=== PATIENT | male | born 1975 | race Caucasian/White ===

== ENCOUNTER 2022-07-29 16:13 | Emergency (ER) | payer MEDICARE, MEDICAID ==
[~2022-07-29] VITALS: Ht 175.3 cm; Wt 94.4 kg
[2022-07-29] MEDS ORDERED: CLEOCIN HCL300 MG PO (16:36)
[2022-07-29] MEDS ORDERED: IBU600 MG PO (16:36)
[2022-07-29] MEDS ORDERED: NORVASC5 MG PO (16:37)
[2022-07-29] MEDS ORDERED: BUPROPION HCL150 M2 PO (16:38)
[2022-07-29] MEDS ORDERED: OMEPRAZOLE20 MG PO (16:38)
[2022-07-29] MEDS ORDERED: TIVICAY10 MG PO (16:39)
[2022-07-29] MEDS ORDERED: PREZCOBIX 8001 EACH PO (16:39)
--- OUTSIDE RECORDS SUMMARY | 2022-07-29 17:13 | XMS ---
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 PHONE: [phone] SHARLENE DUMONT [facility]: Federally Qualified 04/14/2018-[facility] ([facility]) PHONE: [phone] Jimbo has no Care Guidelines for this patient. E.D. VISIT COUNT (12 MO.) 1 Wero Huddleston 1 [facility] Yadira ChambersDaysi Mckinney TOTAL 4 NOTE: Visits indicate total known visits. ED/UCC VISIT TRACKING (12 MO.) 07/29/2022 16:15 [facility]S [place] TYPE: Emergency COMPLAINT: - POSS FACIAL INFECTION 07/17/2022 13:29 Wero [place] TYPE: Emergency COMPLAINT: - Social Work DIAGNOSES: - Social Work 06/14/2022 04:17 Leonel Hannakush TrishDaysi GARCIAE [place] TYPE: Emergency DIAGNOSES: - Hand Injury - Wrist Injury 06/08/2022 12:38 Wero Donaldson [place] TYPE: Emergency DIAGNOSES: - Hypokalemia - Unspecified fracture of the lower end of left radius, subsequent encounter for closed fracture with routine healing - Fall INPATIENT VISIT TRACKING (12 MO.) No inpatient visits to display in this time frame [id number]
[2022-07-29 18:07] VITALS: BP 158/97
== END 2022-07-29 18:08 | disposition home or self-care (01) ==
LOC: ED 16:13
DX: K04.7 Periapical abscess without sinus (principal); Z88.0 Allergy status to penicillin; Z88.2 Allergy status to sulfonamides; Z79.899 Other long term (current) drug therapy
CPT/HCPCS: 36415; 80053; 85025; 96374; 96375; 99283-25; J1885

== ENCOUNTER 2022-10-18 04:43 | Emergency (ER) | payer MEDICARE, MEDICAID ==
[~2022-10-18] VITALS: Ht 175.3 cm; Wt 94.3 kg
--- OUTSIDE RECORDS SUMMARY | ~2022-10-18 | XMS | Continuity of Care Document ---
Demographics + + + | Address | [address] | | | [place] [address] | + + + | Preferred Language | Unknown | + + + | Marital Status | | + + + | Quaker Affiliation | Unknown | + + + | Race | White | + + + | Ethnic Group | Not or | + + + Author + + + | Author | [facility] | + + + | Organization | [facility] | + + + | Address | [address] | | | [place] [address] | + + + | Phone | | + + + Care Team Providers + + + + | Care Purchasing Clerk Name | Role | Phone | + + + + Unavailable | Unavailable | + + + + Unavailable | Unavailable | + + + + Allergies and Intolerances + + + + + + | date | description | facility | reaction | severity | + + + + + + | (no date) | Rash | [facility] | (no reaction) | (no severity) | | [facility] | | | + + + + + + | (no date) | Tongue | [facility] | (no reaction) | (no severity) | | | swelling | [facility] | | | + + + + + + | (no date) | Penicillin | [facility] | (no reaction) | (no severity) | | [facility] | | | + + + + + + | (no date) | Penicillin | [facility] | (no reaction) | (no severity) | | [facility] | | | + + + + + + | (no date) | Penicillin | [facility] | (no reaction) | (no severity) | | [facility] | | | + + + + + + | (no date) | Penicillin | [facility] | (no reaction) | (no severity) | | [facility] | | | + + + + + + Encounters No information. Functional Status No information. Immunizations No information. Medications + + + + | date | description | facility | + + + + | 2022-07-29 00:00 | DARUNAVIR/COBICISTAT | [facility] | + + + + | 2022-07-29 00:00 | Dolutegravir Sodium | [facility] | + + + + | 2022-07-29 00:00 | OMEPRAZOLE | [facility] | + + + + | 2022-07-29 00:00 | Ibuprofen | [facility] | + + + + | 2022-07-29 00:00 | AMLODIPINE BESYLATE | [facility] | + + + + | 2022-07-29 00:00 | CLINDAMYCIN HCL | [facility] | + + + + | 2022-07-29 00:00 | BUPROPION HCL | [facility] | + + + + Problems + + + + | date | description | facility | + + + + | 2022-07-29 00:00 | Dental abscess | [facility] | + + + + | 2022-07-29 16:15 | PERIAPICAL ABSCESS WITHOUT | [facility] | | | SINUS | | + + + + | 2022-07-29 16:15 | 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 Results/Labs +--------+--------+ +---------+--------+---------+ | test | date | facility | value | unit | notes | +--------+--------+ +---------+--------+---------+ + + | Result panel 1 | + + + + + +--------+ + + | | 2022-07-29 | [facility] | 16.1 | (missing) | (missing) | | (unavailable | [facility]47:07 [facility] | | | | + + + +--------+ + + + + | Result panel 2 | + + + + + +------+ + + | | 2022-07-29 | [facility] | 71 | (missing) | (missing) | | (unavailable | [facility]47:07 [facility] | | | | + + + +------+ + + + + | Result panel 3 | + + + + + +------+ + + | | 2022-07-29 | [facility] | 21 | (missing) | (missing) | | (unavailable | [facility]47:07 [facility] | | | | + + + +------+ + + + + | Result panel 4 | + + + + + +-----+ + + | | 2022-07-29 | [facility] | 5 | (missing) | (missing) | | (unavailable | [facility]47[facility]07 [facility] | | | | + + + +-----+ + + + + | Result panel 5 | + + + + + +-----+ + + | | 2022-07-29 | [facility] | 0 | (missing) | (missing) | | (unavailable | [facility]47[facility] | | | | + + + +-----+ + + + + | Result panel 6 | + + + + + +-----+ + + | | 2022-07-29 | [facility] | 1 | (missing) | (missing) | | (unavailable | [facility]47[facility]07 [facility] | | | | + + + +-----+ + + + + | Result panel 7 | + + + + + +-----+ + + | | 2022-07-29 | [facility] | 2 | (missing) | (missing) | | (unavailable | [facility]47[facility]07 [facility] | | | | + + + +-----+ + + + + | Result panel 8 | + + + + + +-------+---------+ + | | 2022-07-29 | [facility] | 122 | mg/dL | (missing) | | (unavailable | [facility]47:07 [facility] | | | | + + + +-------+---------+ + + + | Result panel 9 | + + + + + +------+---------+ + | | 2022-07-29 | [facility] | 21 | mg/dL | (missing) | | (unavailable | [facility]47:07 [facility] | | | | + + + +------+---------+ + + + | Result panel 10 | + + + + + +--------+---------+ + | | 2022-07-29 | [facility] | 3.19 | mg/dL | (missing) | | (unavailable | [facility]47[facility]07 [facility] | | | | + + + +--------+---------+ + + + | Result panel 11 | + + + + + +------+ + + | | 2022-07-29 | [facility] | 23 | (missing) | (missing) | | (unavailable | [facility]47[facility]07 [facility] | | | | + + + +------+ + + + + | Result panel 12 | + + + + + +--------+ + + | | 2022-07-29 | [facility] | 5.26 | (missing) | (missing) | | (unavailable | [facility]47[facility] | | | | + + + +--------+ + + + + | Result panel 13 | + + + + + +--------+ + + | | 2022-07-29 | [facility] | 6.58 | (missing) | (missing) | | (unavailable | [facility]47[facility]07 [facility] | | | | + + + +--------+ + + + + | Result panel 14 | + + + + + +-------+ + + | | 2022-07-29 | [facility] | 132 | (missing) | (missing) | | (unavailable | [facility]47[facility]07 [facility] | | | | + + + +-------+ + + + + | Result panel 15 | + + + + + +-------+ + + | | 2022-07-29 | [facility] | 3.3 | (missing) | (missing) | | (unavailable | [facility]47[facility] | | | | + + + +-------+ + + + + | Result panel 16 | + + + + + +------+ + + | | 2022-07-29 | [facility] | 96 | (missing) | (missing) | | (unavailable | [facility]47:07 [facility] | | | + + + +------+ + + + + | Result panel 17 | + + + + + +------+ + + | | 2022-07-29 | [facility] | 21 | (missing) | (missing) | | (unavailable | [facility]47[facility]07 [facility] | | | | + + + +------+ + + + + | Result panel 18 | + + + + + +--------+ + + | | 2022-07-29 | [facility] | 18.3 | (missing) | (missing) | | (unavailable | [facility]47[facility]07 [facility] | | | | + + + +--------+ + + + + | Result panel 19 | + + + + + +-------+---------+ + | | 2022-07-29 | [facility] | 8.6 | mg/dL | (missing) | | (unavailable | [facility]47[facility]07 [facility] | | | | + + + +-------+---------+ + + + | Result panel 20 | + + + + + +-------+ + + | | 2022-07-29 | [facility] | 9.1 | (missing) | (missing) | | (unavailable | [facility]47[facility]07 [facility] | | | | + + + +-------+ + + + + | Result panel 21 | + + + + + +-------+ + + | | 2022-07-29 | [facility] | 3.8 | (missing) | (missing) | | (unavailable | [facility]47[facility]07 [facility] | | | | + + + +-------+ + + + + | Result panel 22 | + + + + + +-------+ + + | | 2022-07-29 | [facility] | 5.3 | (missing) | (missing) | | (unavailable | [facility] | | | | + + + +-------+ + + + + | Result panel 23 | + + + + + +--------+ + + | | 2022-07-29 | [facility] | 14.7 | (missing) | (missing) | | (unavailable | [facility]47[facility] | | | | + + + +--------+ + + + + | Result panel 24 | + + + + + +--------+ + + | | 2022-07-29 | [facility] | 0.72 | (missing) | (missing) | | (unavailable | [facility]47[facility]07 [facility] | | | | + + + +--------+ + + + + | Result panel 25 | + + + + + +-------+ + + | | 2022-07-29 | [facility] | 0.4 | (missing) | (missing) | | (unavailable | [facility]47[facility] | | | | + + + +-------+ + + + + | Result panel 26 | + + + + + +------+ + + | | 2022-07-29 | [facility] | 18 | (missing) | (missing) | | (unavailable | [facility]47[facility]07 [facility] | | | | + + + +------+ + + + + | Result panel 27 | + + + + + +------+ + + | | 2022-07-29 | [facility] | 42 | (missing) | (missing) | | (unavailable | [facility]47[facility]07 [facility] | | | | + + + +------+ + + + + | Result panel 28 | + + + + + +-------+ + + | | 2022-07-29 | [facility] | 121 | (missing) | (missing) | | (unavailable | [facility]47[facility]07 [facility] | | | | + + + +-------+ + + + + | Result panel 29 | + + + + + +--------+ + + | | 2022-07-29 | [facility] | 45.0 | (missing) | (missing) | | (unavailable | [facility]47[facility] | | | | + + + +--------+ + + + + | Result panel 30 | + + + + + +--------+ + + | | 2022-07-29 | [facility] | 85.6 | (missing) | (missing) | | (unavailable | [facility]47[facility] | | | | + + + +--------+ + + + + | Result panel 31 | + + + + + +--------+ + + | | 2022-07-29 | [facility] | 28.0 | (missing) | (missing) | | (unavailable | [facility]47[facility] | | | | + + + +--------+ + + + + | Result panel 32 | + + + + + +--------+ + + | | 2022-07-29 | [facility] | 32.7 | (missing) | (missing) | | (unavailable | [facility]47[facility] | | | | + + + +--------+ + + + + | Result panel 33 | + + + + + +--------+ + + | | 2022-07-29 | [facility] | 16.2 | (missing) | (missing) | | (unavailable | [facility]47[facility] | | | | + + + +--------+ + + + + | Result panel 34 | + + + + + +-------+ + + | | 2022-07-29 | [facility] | 434 | (missing) | (missing) | | (unavailable | [facility]47[facility] | | | | + + + +-------+ + + Social History + + + + | date | description | facility | + + + + | 2022-07-29 00:00 | [facility] if ever [facility] | + + + + Vital Signs + + + +---------+ | date | measurement | value | units | + + + +---------+ | 2022-07-29 00:00 | BMI | 30.7 | kg/m2 | + + + +---------+ | 2022-07-29 00:00 | BP_diastolic | 97 | mmHg | + + + +---------+ | 2022-07-29 00:00 | BP_systolic | 158 | mmHg | + + + +---------+ | 2022-07-29 00:00 | heart_rate | 92 | /min | + + + +---------+ | 2022-07-29 00:00 | height_metric | 175.26 | cm | + + + +---------+ | 2022-07-29 00:00 | height_standard | 69 | in | + + + +---------+ | 2022-07-29 00:00 | o2_saturation | 97 | % | + + + +---------+ | 2022-07-29 00:00 | respiration_rate | 18 | /min | + + + +---------+ | 2022-07-29 00:00 | temperature_metric | 36.5 | C | | | | | | + + + +---------+ | 2022-07-29 00:00 | | 97.7 | F | | | temperature_standar | | | | | d | | | + + + +---------+ | 2022-07-29 00:00 | weight_metric | 94.37 | kg | + + + +---------+ | 2022-07-29 00:00 | weight_metric | 94.38 | kg | + + + +---------+ | 2022-07-29 00:00 | weight_standard | 208.06 | lb | + + + +---------+ | 2022-07-29 00:00 | weight_standard | 208.07 | lb | + + + +---------+"
--- OUTSIDE RECORDS SUMMARY | ~2022-10-18 | XMS | Continuity of Care Document ---
Demographics + + + | Address | [address] | | | [place] [address] | + + + | Preferred Language | Unknown | + + + | Marital Status | | + + + | Jainism Affiliation | Unknown | + + + | Race | White | + + + | Ethnic Group | Not or | + + + Author + + + | Author | [facility] | + + + | Organization | [facility] | + + + | Address | [address] | | | [place] [address] | + + + | Phone | | + + + Care Team Providers + + + + | Care Route Contractor Name | Role | Phone | + [...] | 2022-07-29 00:00 | DARUNAVIR/COBICISTAT | [facility] | + + + + | 2022-07-29 00:00 | Dolutegravir Sodium | [facility] | + + + + | 2022-07-29 00:00 | OMEPRAZOLE | [facility] | + + + + | 2022-07-29 00:00 | Ibuprofen | [facility] | + + + + | 2022-07-29 00:00 | AMLODIPINE BESYLATE | [facility] | + + + + | 2022-07-29 00:00 | CLINDAMYCIN HCL | [facility] | + + + + | 2022-07-29 00:00 | BUPROPION HCL | [facility] | + + + + Problems + + + + | date | description | facility | + + + + | 2022-07-29 00:00 | Dental abscess | [facility] | + + + + | 2022-07-29 16:15 | PERIAPICAL ABSCESS WITHOUT | [facility] | | | SINUS | | + + + + | 2022-07-29 16:15 | OTHER ROLL OUT MANAGER (CURRENT) | [facility] | | | [...] | Unknown if ever smoked [facility] | + + + + Vital Signs [...]
[~2022-10-18 04:43] MED LIST: BUPROPION HCL150 M2 PO; CLEOCIN HCL300 MG PO; IBU600 MG PO; NORVASC5 MG PO; OMEPRAZOLE20 MG PO; PREZCOBIX 8001 EACH PO; TIVICAY10 MG PO
--- OUTSIDE RECORDS SUMMARY | 2022-10-18 04:50 | XMS ---
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 E.D. VISIT COUNT (12 MO.) 2 MANAS Mckinney 1 Wero Huddleston 1 Wero Lau 1 Don Ivory TOTAL 5 NOTE: Visits indicate total known visits. 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 - Periapical abscess without sinus 07/17/2022 13:29 Legacy Flaquito Alexia [place] TYPE: Emergency COMPLAINT: - Social Work DIAGNOSES: - Social Work 06/14/2022 04:17 Don [place] TYPE: Emergency DIAGNOSES: - Hand Injury - Wrist Injury 06/08/2022 12:38 [facility] Yadira [place]al[place]ham [place] TYPE: Emergency DIAGNOSES: - Hypokalemia - Unspecified fracture of the lower end of left radius, subsequent encounter for closed fracture with routine healing - Fall INPATIENT VISIT TRACKING (12 MO.) No inpatient visits to display in this time frame [id number]
[2022-10-18] MEDS ORDERED: CLEOCIN HCL300 MG PO (04:55)
[2022-10-18] MEDS ORDERED: IBU800 MG PO (04:56)
[2022-10-18 05:14] VITALS: BP 148/98
== END 2022-10-18 05:10 | disposition home or self-care (01) ==
LOC: ED 04:43
DX: K04.7 Periapical abscess without sinus (principal); K02.9 Dental caries, unspecified; K05.00 Acute gingivitis, plaque induced; Z79.899 Other long term (current) drug therapy; Z88.0 Allergy status to penicillin; Z88.2 Allergy status to sulfonamides
CPT/HCPCS: 99282; A9270

== ENCOUNTER 2023-04-21 21:16 | Emergency (ER) | payer MEDICARE, MEDICAID ==
[~2023-04-21] VITALS: Ht 175.3 cm; Wt 94.4 kg
[~2023-04-21 21:16] MED LIST changes: +IBU800 MG PO
--- OUTSIDE RECORDS SUMMARY | 2023-04-21 21:19 | XMS ---
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 PHONE: [phone] SHARLENE DUMONT [facility]: Federally Qualified 04/14/2018-[facility] PHONE: [phone] [facility]: [facility] Current \F\ [facility] PHONE: [phone] Jimbo has no Care Guidelines for this patient. E.D. VISIT COUNT (12 MO.) 3 MANAS Pool ([facility]) 1 Wero Huddleston 1 Wero Yadira Lau TOTAL 6 NOTE: Visits indicate total known visits. ED/UCC VISIT TRACKING (12 MO.) 04/21/2023 21:16 [facility] [place] TYPE: Emergency COMPLAINT: - DENTAL PAIN 10/18/2022 04:44 [facility] [place] TYPE: Emergency COMPLAINT: - GUM SWELLING DIAGNOSES: - Acute gingivitis, plaque induced - Allergy status to penicillin - Allergy status to sulfonamides - Dental caries, unspecified - Other shelter (current) drug therapy - Other specified disorders of teeth and supporting structures - Periapical abscess without sinus 07/29/2022 16:15 [facility]S [place] TYPE: Emergency COMPLAINT: - POSS FACIAL INFECTION DIAGNOSES: - Allergy status to penicillin - Allergy status to sulfonamides - 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 - Periapical abscess without sinus 07/17/2022 13:29 Wero RAM TYPE: Emergency COMPLAINT: - Social Work DIAGNOSES: - Social Work 06/14/2022 04:17 Don VALDIVIA [place] ([facility]) TYPE: Emergency DIAGNOSES: - Hand Injury - Wrist Injury 06/08/2022 12:38 [facility] [place] TYPE: Emergency DIAGNOSES: - Hypokalemia - Unspecified fracture of the lower end of left radius, subsequent encounter for closed fracture with routine healing - Fall INPATIENT VISIT TRACKING (12 MO.) No inpatient visits to display in this time frame [id number]
[2023-04-21] MEDS ORDERED: clindamycin HCL 300 MG CAP PO ONE (21:45)
[2023-04-21] MEDS ORDERED: LIDOCAINE & ANTACID 35 ML BTL PO ONE (21:45)
[2023-04-21 22:03] VITALS: BP 172/98
== END 2023-04-21 22:03 | disposition home or self-care (01) ==
LOC: ED 21:16
DX: K05.10 Chronic gingivitis, plaque induced (principal); Z21 Asymptomatic human immunodeficiency virus [HIV] infection status; Z88.2 Allergy status to sulfonamides; Z88.0 Allergy status to penicillin; Z79.899 Other long term (current) drug therapy
CPT/HCPCS: 99282

== ENCOUNTER 2024-01-02 20:07 | Emergency (ER) | payer MEDICARE, MEDICAID ==
[~2024-01-02] VITALS: Ht 175.3 cm; Wt 91.2 kg
[2024-01-02] MEDS ORDERED: JARDIANCE10 MG PO (20:22)
[2024-01-02] MEDS ORDERED: CARVEDILOL12.5 MG PO (20:22)
[2024-01-02] MEDS ORDERED: SILDENAFIL CIT100 MG PO (20:23)
[2024-01-02 20:25] LABS: PH, VENOUS 7.335 (7.31-7.41)
[2024-01-02] MEDS ORDERED: ALBUTEROL/IPRATROPIUM 3 ML NEB INH ONE (20:30)
[2024-01-02 20:32] LABS: BASOPHILS 0.4 % (0-2); EOSINOPHILS 2.7 % (0-6); HEMATOCRIT 45.4 % (35.0-50.0); HEMOGLOBIN 15.3 g/dL (12.0-18.0); LYMPHOCYTES 23.6 % (24-44); MCH 27.5 (27-36); MCHC 33.6 g/dl (30-36); MCV 81.7 fl (81-99); MONOCYTES 9.7 % (0-12); NEUTROPHILS 63.6 % (39-80); PLATELET COUNT 368 K/uL (140-440); RBC 5.55 M/ul (4.3-5.7); RDW 17.1 (10.5-15.0)
[2024-01-02 20:53] LABS: ALBUMIN 3.6 g/dL (3.4-5.0); ALBUMIN/GLOBULIN RATIO 0.59 (1.1-2.4); ANION GAP 14.6 (7-21); BILIRUBIN, TOTAL 0.9 ng/dL (0.2-1.0); BUN/CREATININE RATIO 7.77 (6.0-28.6); CALCIUM 9.3 mg/dL (8.5-10.1); CREATININE, SERUM 3.73 mg/dL (0.70-1.30); POTASSIUM 3.6 mmol/L (3.5-5.1); PROTEIN, TOTAL 9.7 g/dL (6.4-8.2)
[2024-01-02] MEDS ORDERED: LORazepam 1 MG HOME.PACK PO ONE (21:45)
[2024-01-02 21:55] VITALS: BP 119/87
--- NOTE | 2024-01-03 21:43 | EKG ---
[facility] [address] [place] [address] Signed Normal sinus rhythm Normal ECG No previous ECGs available Confirmed by Arnoldo Tyler MD () on 01/03/2024 9:43:13 PM Electronically Signed By: ARNOLDO TYLER MD 01/03/242142 PATIENT NAME: OJ HOYOS Electrocardiogram DATE OF : 71 PHYSICIAN: ARNOLDO TYLER MD REPORT #: [id number] REPORT IS CONFIDENTIAL AND NOT TO BE RELEASED WITHOUT AUTHORIZATION
== END 2024-01-02 21:55 | disposition home or self-care (01) ==
LOC: ED 20:07
PROVIDERS: Family Medicine
DX: R06.02 Shortness of breath (principal); N19 Unspecified kidney failure; Z21 Asymptomatic human immunodeficiency virus [HIV] infection status; Z85.47 Personal history of malignant neoplasm of testis; Z88.0 Allergy status to penicillin; Z88.2 Allergy status to sulfonamides; Z79.899 Other long term (current) drug therapy
CPT/HCPCS: 36415; 71045; 80053; 82803; 83880; 84484; 85025; 85379; 93005; 93010; 93970; 99285-25